=== PATIENT | male | born 1960 | race African-American/Black ===

== ENCOUNTER 2018-01-31 20:40 | Emergency (ER) | payer OTHER, MEDICAID ==
[~2018-01-31] VITALS: Ht 175.3 cm; Wt 85.5 kg
[~2018-01-31 20:40] MED LIST: ALBU8HFA INH; GABA-532 PO
[2018-01-31] MEDS ORDERED: fentaNYL/PF 50MCG/1 ML 2ML syringe IM ONE (21:10)
[2018-01-31] MEDS ORDERED: ondansetron 4mg rapidly disintigrating tab PO ONE (21:10)
[2018-01-31] MEDS ORDERED: acetaminophen 325mg tablet PO ONE (21:10)
[2018-01-31] MEDS ORDERED: ketorolac trometh inj. 60 MG/2 ML VIAL IM ONE (22:30)
[2018-01-31] MEDS ORDERED: orphenadrine citrate 60mg/2ml inj. IM ONE (22:30)
[2018-01-31] MEDS ORDERED: ACET-812 PO (22:36)
[2018-01-31] MEDS ORDERED: IBUP-1986 PO (22:36)
[2018-01-31] MEDS ORDERED: CYCL-1 PO (22:36)
[2018-01-31 23:01] VITALS: BP 161/89
== END 2018-01-31 23:08 | disposition home or self-care (01) ==
LOC: ER 20:40
DX: M54.2 Cervicalgia (principal); R07.89 Other chest pain; M54.9 Dorsalgia, unspecified; I10 Essential (primary) hypertension; J44.9 Chronic obstructive pulmonary disease, unspecified; G89.29 Other chronic pain; Z88.5 Allergy status to narcotic agent; V49.88XA Car occupant (driver) (passenger) injured in other specified transport accidents, initial encounter; Y93.89 Activity, other specified; Y92.413 State road as the place of occurrence of the external cause; Y99.9 Unspecified external cause status
CPT/HCPCS: 70450; 71045; 72125; 93005; 96372; 99284; J1885; J2360; J3010

== ENCOUNTER 2020-02-15 12:10 | Emergency (ER) | payer MEDICAID, OTHER ==
[~2020-02-15] VITALS: Ht 175.3 cm; Wt 104.5 kg
[~2020-02-15 12:10] MED LIST changes: +CYCL-1 PO; +IBUP-1986 PO
[2020-02-15] MEDS ORDERED: morphine 4 MG/ML inj SYRINge IV ONE (12:50)
[2020-02-15] MEDS ORDERED: ondansetron/PF 4mg/2ml inj IV ONE (12:50)
[2020-02-15] MEDS ORDERED: fentaNYL/PF 50MCG/1 ML 2ML syringe IV ONE (13:05)
[2020-02-15 13:45] LABS: BASOPHILS # (AUTO) 0.1 X10'3 (0-0.2); EOSINOPHILS # (AUTO) 0.4 X10'3 (0-0.9); EOSINOPHILS % (AUTO) 5.2 % (0-6); HEMATOCRIT 45.5 % (42.0-52.0); HEMOGLOBIN 15.3 g/dl (14.0-17.9); LYMPHOCYTES # (AUTO) 1.7 X10'3 (1.1-4.8); LYMPHOCYTES % (AUTO) 22.9 % (21-51); MEAN CORPUSCULAR HEMOGLOBIN 30.1 PG (27.0-31.0); MEAN CORPUSCULAR HGB CONC 33.7 g/dL (33.0-36.5); MEAN CORPUSCULAR VOLUME 89.3 FL (78-98); MEAN PLATELET VOLUME 8.8 FL (7.4-10.4); MONOCYTES # (AUTO) 0.6 X10'3 (0-0.9); MONOCYTES % (AUTO) 8.4 % (2-12); NEUTROPHILS # (AUTO) 4.5 X10'3 (1.8-7.7); NEUTROPHILS % (AUTO) 62.5 % (42-75); PLATELET COUNT 300 X10'3 (140-440); RED BLOOD COUNT 5.09 X10'6 (4.70-6.10); RED CELL DISTRIBUTION WIDTH 15.4 % (11.5-14.5); WHITE BLOOD COUNT 7.2 X10'3 (4.5-11.0)
[2020-02-15 14:02] LABS: ALANINE AMINOTRANSFERASE 21 U/L (12-78); ALBUMIN/GLOBULIN RATIO 0.9 (1.1-1.5); ALKALINE PHOSPHATASE 82 IU/L (46-116); ANION GAP 7 (8-16); ASPARTATE AMINO TRANSFERASE 18 U/L (10-37); BILIRUBIN,TOTAL 0.9 MG/DL (0.1-1.0); BLOOD UREA NITROGEN 12 MG/DL (7-18); BUN/CREATININE RATIO 10.5 (5.4-32.0); CALCIUM 9.5 MG/DL (8.5-10.1); CHLORIDE 109 MMOL/L (99-107); CREATININE 1.14 MG/DL (0.60-1.10); GLUCOSE 93 MG/DL (70-104); SODIUM 144 MMOL/L (135-145); TOTAL CARBON DIOXIDE 27.8 MMOL/L (24-32); TOTAL PROTEIN 8.3 G/DL (6.4-8.2); eGFR 79 ML/MIN
[2020-02-15 14:06] LABS: ETHANOL < 0.010 GM/DL (0.0-0.010); TROPONIN I 0.05 NG/ML (0.0-0.05)
[2020-02-15 14:07] LABS: POTASSIUM 4.6 MMOL/L (3.5-5.1)
[2020-02-15] MEDS ORDERED: iohexol 300mg/ml 100ml inj. ONE (14:29)
[2020-02-15 16:46] VITALS: BP 159/94
[2020-02-15 16:48] LABS: CLARITY,URINE CLEAR (Clear); COLOR,URINE STRAW (Yellow); GLUCOSE, URINE NEGATIVE (Neg); KETONES,URINE NEGATIVE (Neg); LEUKOCYTE ESTERASE ,URINE NEGATIVE (Neg); NITRITES, URINE NEGATIVE (Neg); OCCULT BLOOD,URINE NEGATIVE (Neg); PROTEIN,URINE NEGATIVE (Neg); UROBILINOGEN,URINE >=8.0 E.U/dL (0.2-1.0)
[2020-02-15 16:50] LABS: UA COLLECTION TYPE VOIDED
[2020-02-15 17:05] LABS: URINE AMPHETAMINE SCREEN NEGATIVE (Neg); URINE BARBITUATE SCREEN NEGATIVE (Neg); URINE BENZODIAZEPINES SCREEN NEGATIVE (Neg); URINE CANNABINOID SCREEN POSITIVE (Neg); URINE COCAINE SCREEN NEGATIVE (Neg); URINE METHADONE SCREEN NEGATIVE (Neg); URINE OPIATE SCREEN NEGATIVE (Neg); URINE PHENCYCLIDINE SCREEN NEGATIVE (Neg)
== END 2020-02-15 17:20 | disposition home or self-care (01) ==
LOC: ER 12:11
DX: M54.2 Cervicalgia (principal); R07.89 Other chest pain; M54.9 Dorsalgia, unspecified; I10 Essential (primary) hypertension; J44.9 Chronic obstructive pulmonary disease, unspecified; G89.29 Other chronic pain; Z88.5 Allergy status to narcotic agent; Z79.899 Other long term (current) drug therapy; V87.7XXA Person injured in collision between other specified motor vehicles (traffic), initial encounter; Y93.89 Activity, other specified; Y92.89 Other specified places as the place of occurrence of the external cause; Y99.8 Other external cause status
CPT/HCPCS: 36415; 70450; 71045; 71260; 72125; 74177; 80053; 80305; 80320; 81003; 84484; 85025; 85610; 86885; 86900; 86901; 93005; 96374; 96375; 99285; J2405; J3010; Q9967

== ENCOUNTER 2020-05-20 11:18 | Observation (INO) | payer MEDICAID ==
[~2020-05-20] VITALS: Ht 172.7 cm; Wt 103.8 kg
[2020-05-20 12:43] LABS: BASOPHILS # (AUTO) 0.1 X10'3 (0-0.2); EOSINOPHILS # (AUTO) 0.3 X10'3 (0-0.9); LYMPHOCYTES # (AUTO) 1.4 X10'3 (1.1-4.8); LYMPHOCYTES % (AUTO) 25.4 % (21-51); MONOCYTES # (AUTO) 0.5 X10'3 (0-0.9); NEUTROPHILS # (AUTO) 3.3 X10'3 (1.8-7.7); WHITE BLOOD COUNT 5.6 X10'3 (4.5-11.0)
[2020-05-20 12:45] LABS: BASOPHILS % (AUTO) 1.8 % (0-1); EOSINOPHILS % (AUTO) 5.3 % (0-6); HEMATOCRIT 44.8 % (42.0-52.0); MEAN CORPUSCULAR HEMOGLOBIN 29.5 PG (27.0-31.0); MEAN CORPUSCULAR HGB CONC 33.4 g/dL (33.0-36.5); MEAN CORPUSCULAR VOLUME 88.2 FL (78-98); MONOCYTES % (AUTO) 8.9 % (2-12); NEUTROPHILS % (AUTO) 58.6 % (42-75); PLATELET COUNT 254 X10'3 (140-440); RED BLOOD COUNT 5.08 X10'6 (4.70-6.10); RED CELL DISTRIBUTION WIDTH 15.1 % (11.5-14.5)
[2020-05-20] MEDS ORDERED: aspirin 81mg tab.chew PO ONE (12:50)
[2020-05-20] MEDS ORDERED: normal saline 1000ML IV soln IVB ONE (12:50)
[2020-05-20 12:58] LABS: ALANINE AMINOTRANSFERASE 26 U/L (12-78); ALBUMIN 3.9 G/DL (3.4-5.0); ALBUMIN/GLOBULIN RATIO 0.9 (1.1-1.5); ALKALINE PHOSPHATASE 78 IU/L (46-116); ANION GAP 10 (8-16); ASPARTATE AMINO TRANSFERASE 17 U/L (10-37); BILIRUBIN,TOTAL 0.7 MG/DL (0.1-1.0); BLOOD UREA NITROGEN 13 MG/DL (7-18); BUN/CREATININE RATIO 12.3 (5.4-32.0); CALCIUM 9.1 MG/DL (8.5-10.1); CHLORIDE 106 MMOL/L (99-107); CREATININE 1.06 MG/DL (0.60-1.10); GLUCOSE 104 MG/DL (70-104); POTASSIUM 3.8 MMOL/L (3.5-5.1); SODIUM 144 MMOL/L (135-145); TOTAL CARBON DIOXIDE 28.1 MMOL/L (24-32); TOTAL PROTEIN 8.2 G/DL (6.4-8.2); eGFR 86 ML/MIN
--- NOTE | 2020-05-20 13:20 | NUR ---
spouse at bedside.
[2020-05-20] MEDS ORDERED: MELO-102 PO (13:25)
[2020-05-20] MEDS ORDERED: AMLO5TAB16 PO (13:25)
[2020-05-20] MEDS ORDERED: LISI10TA27 PO (13:25)
[2020-05-20] MEDS ORDERED: GABA300C PO (13:25)
[2020-05-20] MEDS ORDERED: HYDR-3972 PO ×2 (13:25→18:22)
[2020-05-20] MEDS ORDERED: ondansetron/PF 4mg/2ml inj IV PRN (13:30)
[2020-05-20] MEDS ORDERED: magnesium hydroxide 30ml (MOM) UD suspension PO PRN (13:30)
[2020-05-20] MEDS ORDERED: normal saline 1000ml 1,000 ML IV SCH (13:30)
[2020-05-20] MEDS ORDERED: acetaminophen 325mg tablet PO PRN ×2 (13:30)
[2020-05-20] MEDS ORDERED: mag hydrox/Alum hydrox/simeth 30ml oral suspension PO PRN (13:30)
--- NOTE | 2020-05-20 14:41 | NUR ---
SHIPPING AND RECEIVING ASSOCIATE AT BEDSIDE.
[2020-05-20 16:06] LABS: CLARITY,URINE CLEAR (Clear); COLOR,URINE YELLOW (Yellow); GLUCOSE, URINE NEGATIVE (Neg); KETONES,URINE NEGATIVE (Neg); LEUKOCYTE ESTERASE ,URINE NEGATIVE (Neg); NITRITES, URINE NEGATIVE (Neg); OCCULT BLOOD,URINE NEGATIVE (Neg); PROTEIN,URINE NEGATIVE (Neg); UA COLLECTION TYPE CLN CATCH MIDSTREAM
[2020-05-20 17:00] VITALS: BP 151/86
--- NOTE | 2020-05-20 17:00 | NUR ---
Patient arrived to floor. IV intact and infusing. Patient has clear breath sounds heart tones [id number], patient alert and oriented x4. patient stated he did not want the MRI if it was not an open tube. Patient vital signs within normal limits.
--- NOTE | 2020-05-20 18:02 | NUR ---
Student documentation: I have reviewed and agree with all interventions, assessments performed and documented by Teresa THOMAS. Addendum: 05/20/20 at 1803 by Timbo Ann RN entered on wrong patient.
--- NOTE | 2020-05-20 18:32 | NUR ---
Problems reprioritized. Patient report given, questions answered & plan of care reviewed with Saima CASTILLO.
--- NOTE | 2020-05-20 18:40 | NUR ---
Patient in room PCU 3023. I have received report from Ronnie and had the opportunity to ask questions and assume patient care.
--- NOTE | 2020-05-20 19:30 | NUR ---
pt left room accompanied by an aid on WC. d/c instruction given to the pt. d/c IV and Tele. pt left by private vehicle with his .
[2020-05-21] MEDS ORDERED: aspirin 81mg tablet.DR PO SCH (08:00)
--- NOTE | 2020-05-21 14:47 | NUR ---
CASE MANAGEMENT DISCHARGE FOLLOW UP: Spoke with pt via telephone. Reports that he is "doing okay," states just having a lot of pain in his neck/shoulder. Verbalizes understanding of s/sx requiring further evaluation/emergent assistance. Verbalizes understanding of current medications. Verbalizes compliance with MD discharge instructions. Verbalizes understanding of the importance in making/keeping follow-up appointments, requesting assistance in scheduling f/u appt. States no further questions/concerns at this time. 1500 T/c to Dr Marino's office to set up f/u appt for pt. On hold for 18 minutes. Scheduled appt for pt on May 26 @ 0750. 1520 T/c to patient, notified of new appt with Dr Marino, pt states that he will be there.
== END 2020-05-20 19:30 | disposition home or self-care (01) ==
LOC: ER 11:19 → ED HOLD 13:28 → PCU 3S 17:00
PROVIDERS: ADMIT Internal Medicine; ATTEND Internal Medicine
DX: G93.40 Encephalopathy, unspecified (principal); R41.82 Altered mental status, unspecified; R26.9 Unspecified abnormalities of gait and mobility; I10 Essential (primary) hypertension; G45.9 Transient cerebral ischemic attack, unspecified; J44.9 Chronic obstructive pulmonary disease, unspecified; G89.29 Other chronic pain; Z87.828 Personal history of other (healed) physical injury and trauma; Z79.899 Other long term (current) drug therapy; Z88.5 Allergy status to narcotic agent
CPT/HCPCS: 36415; 70450; 72125; 80053; 81003; 82948; 83880; 85025; 85651; 87081; 93005; 93306; 96360; 96361; 99285; G0378; J7030

== ENCOUNTER 2020-07-06 09:08 | Emergency (ER) | payer MEDICAID ==
[~2020-07-06] VITALS: Ht 175.3 cm; Wt 109.1 kg
[~2020-07-06 09:08] MED LIST changes: -ALBU8HFA INH; +AMLO5TAB16 PO; -CYCL-1 PO; -GABA-532 PO; +GABA300C PO; +HYDR-3972 PO; -IBUP-1986 PO; +LISI10TA27 PO; +MELO-102 PO
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
[2020-07-06] MEDS ORDERED: ondansetron 4mg rapidly disintigrating tab PO ONE (09:35)
[2020-07-06] MEDS ORDERED: HYDROcodone/acetaminophen 10/325mg tab PO ONE (09:35)
[2020-07-06 10:56] LABS: BASOPHILS # (AUTO) 0.1 X10'3 (0-0.2); BASOPHILS % (AUTO) 1.1 % (0-1); EOSINOPHILS # (AUTO) 0.2 X10'3 (0-0.9); MONOCYTES # (AUTO) 0.4 X10'3 (0-0.9)
[2020-07-06 10:58] LABS: EOSINOPHILS % (AUTO) 3.1 % (0-6); HEMATOCRIT 44.5 % (42.0-52.0); HEMOGLOBIN 15.1 g/dl (14.0-17.9); LYMPHOCYTES % (AUTO) 16.2 % (21-51); MEAN CORPUSCULAR HEMOGLOBIN 29.7 PG (27.0-31.0); MEAN CORPUSCULAR HGB CONC 33.9 g/dL (33.0-36.5); MEAN CORPUSCULAR VOLUME 87.6 FL (78-98); MEAN PLATELET VOLUME 8.8 FL (7.4-10.4); MONOCYTES % (AUTO) 6.6 % (2-12); NEUTROPHILS # (AUTO) 4.3 X10'3 (1.8-7.7); PLATELET COUNT 244 X10'3 (140-440); RED BLOOD COUNT 5.08 X10'6 (4.70-6.10); RED CELL DISTRIBUTION WIDTH 15.3 % (11.5-14.5); WHITE BLOOD COUNT 5.9 X10'3 (4.5-11.0)
[2020-07-06 11:05] LABS: PARTIAL THROMBOPLASTIN TIME 27 SECONDS (22-32)
[2020-07-06 11:08] LABS: ALANINE AMINOTRANSFERASE 27 U/L (12-78); ALBUMIN 4.1 G/DL (3.4-5.0); ALBUMIN/GLOBULIN RATIO 1.1 (1.1-1.5); ALKALINE PHOSPHATASE 71 IU/L (46-116); ANION GAP 10 (8-16); ASPARTATE AMINO TRANSFERASE 21 U/L (10-37); BILIRUBIN,TOTAL 0.8 MG/DL (0.1-1.0); BLOOD UREA NITROGEN 15 MG/DL (7-18); BUN/CREATININE RATIO 13.3 (5.4-32.0); CALCIUM 9.1 MG/DL (8.5-10.1); CHLORIDE 107 MMOL/L (99-107); CREATININE 1.13 MG/DL (0.60-1.10); GLUCOSE 103 MG/DL (70-104); POTASSIUM 4.1 MMOL/L (3.5-5.1); SODIUM 144 MMOL/L (135-145); TOTAL CARBON DIOXIDE 27.3 MMOL/L (24-32); TOTAL PROTEIN 7.8 G/DL (6.4-8.2); eGFR 80 ML/MIN
[2020-07-06] MEDS ORDERED: iohexol 300mg/ml 100ml inj. ONE (11:28)
[2020-07-06] MEDS ORDERED: HYDR-3965 PO (12:15)
[2020-07-06] MEDS ORDERED: ONDA4TAB6 PO (12:15)
[2020-07-06 13:03] VITALS: BP 149/87
== END 2020-07-06 13:04 | disposition home or self-care (01) ==
LOC: ER 09:09
DX: S22.32XA Fracture of one rib, left side, initial encounter for closed fracture (principal); M25.552 Pain in left hip; R10.11 Right upper quadrant pain; R10.31 Right lower quadrant pain; I10 Essential (primary) hypertension; J44.9 Chronic obstructive pulmonary disease, unspecified; G89.29 Other chronic pain; Z88.6 Allergy status to analgesic agent; Z79.899 Other long term (current) drug therapy; W19.XXXA Unspecified fall, initial encounter; Z91.81 History of falling; Y93.89 Activity, other specified; Y92.002 Bathroom of unspecified non-institutional (private) residence as the place of occurrence of the external cause; Y99.8 Other external cause status
CPT/HCPCS: 71260; 73502; 74177; 80053; 85025; 85610; 85730; 99285; Q9967